=== PATIENT | female | born 1985 | race Two or more races ===

== ENCOUNTER 2020-05-06 09:50 | Inpatient (IN) | payer OTHER ==
[~2020-05-06] VITALS: Ht 170.2 cm; Wt 90.7 kg
[2020-05-06] MEDS ORDERED: LACTATED RINGER'S 1,000 ML IV SCH (10:44)
[2020-05-06] MEDS ORDERED: LACT. RINGERS/OXYTOCIN 20UNITS 1,000 ML IV SCH (10:44)
[2020-05-06 11:29] LABS: Basophils # (auto) 0.1 10 ^3/uL (0-0.2); Basophils % (auto) 0.6 % (0.0-2.0); Eosinophils # (auto) 0.1 10 ^3/uL (0-0.8); Eosinophils % (auto) 0.9 % (0.0-7.0); Hematocrit 40.8 % (36.0-46.0); Lymphocytes # (auto) 1.5 10 ^3/uL (0.4-5.4); Lymphocytes % (auto) 10.7 % (10.0-50.0); Mean Corpuscular Hemoglobin 29.2 pg (28.0-32.0); Mean Corpuscular Volume 91.3 fL (80.0-100.0); Monocytes # (auto) 0.7 10 ^3/uL (0-1.3); Monocytes % (auto) 4.6 % (0.0-12.0); Neutrophils % (auto) 83.2 % (37.0-80.0); Platelet Count (auto) 200 10^3/uL (140-450); Red Blood Cells 4.47 10^6/uL (4.0-5.20); Red Cell Distribution Width 14.7 % (11.8-14.3); White Blood Cell 14.4 10^3/uL (4.4-10.8)
[2020-05-06] MEDS: IBUPROFEN 600 MG TAB PO PRN ×3 (11:33→20:14)
[2020-05-06 11:44] LABS: INR 0.92 (0.9-1.15); Partial Thromboplastin Time 22.5 sec (23.0-31.2)
[2020-05-06 12:03] LABS: Albumin 2.7 g/dL (3.4-5.0); Calcium 8.4 mg/dL (8.5-10.1)
[2020-05-06 12:07] LABS: BUN/Creatinine Ratio 18.8; Bilirubin, Total 0.4 mg/dL (0.2-1.0); Total Protein 6.7 g/dL (6.4-8.2); Uric Acid 3.5 mg/dL (2.6-6.0)
[2020-05-06] MEDS ORDERED: WITCH HAZEL-GLYCERIN PAD TOP PRN (12:15)
[2020-05-06] MEDS ORDERED: PHISODERM TOP SOLN 240ML BTL TOP PRN (12:15)
[2020-05-06] MEDS ORDERED: DERMOPLAST 60ML BOTTLE TOP PRN (12:15)
--- NOTE | 2020-05-06 12:30 | NUR ---
Ambulation: Patient OOB with standby assistance by RN. Patient ambulated to bathroom with steady gait. [facility] teaching provided with returned demonstration by patient. Clean gown provided and bed linen changed. Patient ambulated back to bed with steady gait and no distress noted.
[2020-05-06 15:10] VITALS: BP 111/63
--- NOTE | 2020-05-06 17:21 | NUR ---
Dr. Barrett notified PT did not receive COVID19 test and has no signs and symptoms of COVID19. Dr. Barrett verbalizes it's okay to hold COVID19 testing.
[2020-05-06] MEDS ORDERED: miSOPROStol 100 mcg TAB PO ONE (17:45)
[2020-05-06 19:07] VITALS: BP 128/58
[2020-05-06] MEDS ORDERED: PREN-129 PO (20:07)
[2020-05-06] MEDS ORDERED: ACETAMINOPHEN 325 MG TAB PO PRN (20:15)
[2020-05-06 22:46] VITALS: BP 118/79
[2020-05-07 03:00] VITALS: BP 121/72
[2020-05-07 04:06] LABS: Rubella Antibodies, IgG <0.90 index (Immune >0.99)
[2020-05-07] MEDS: IBUPROFEN 600 MG TAB PO PRN ×3 (04:43→11:08)
[2020-05-07 05:11] LABS: RPR Non Reactive (Non Reactive)
[2020-05-07 07:20] VITALS: BP 116/65
[2020-05-07] MEDS ORDERED: MEASLES, MUMPS & RUBELLA VAC(MMRII) 0.5ML SC ONE (09:30)
[2020-05-07 11:00] VITALS: BP 131/70
--- NOTE | 2020-05-07 11:30 | NUR ---
Discharge: Discharge instructions given as ordered. Pt encouraged to follow up with THERAPY AIDE as instructed. All questions and concerns addressed. Patient verbalized understanding. Medication reconciliation completed and copy given to patient. All required/requested vaccines given and copies of vaccinations given to patient. Patient encouraged to prepare to depart unit.
--- NOTE | 2020-05-07 11:38 | NUR ---
Discharge: Patient taken to vehicle via wheelchair with all personal belongings, accompanied by staff and family member. No distress noted at the time of departure, no adverse changes in status since initial assessment.
== END 2020-05-07 11:38 | disposition home or self-care (01) | DRG 807 ==
LOC: OBSVTOIN 09:50 → LDRP 09:50
PROVIDERS: ADMIT Specialist; ATTEND Specialist
PROC: 10E0XZZ Delivery of Products of Conception, External Approach (ICD-10-PCS; principal; 2020-05-06)
DX: O62.3 Precipitate labor (principal); Z37.0 Single live birth; Z3A.40 40 weeks gestation of pregnancy
CPT/HCPCS: 36415; 59025; 59409; 80053; 81002; 84112; 84550; 85025; 85610; 85730; 86592; 86703; 86762; 86850; 86900; 86901; 87340; 96360; 96372; G0378

== ENCOUNTER 2025-02-06 11:46 | Emergency (ER) | payer OTHER ==
[~2025-02-06] VITALS: Ht 170.2 cm; Wt 64.0 kg
[~2025-02-06 11:46] MED LIST: PREN-129 PO
[2025-02-06] MEDS: SODIUM CHLORIDE 0.9% 500 ML IV ONE (12:15)
[2025-02-06] MEDS: methylPREDNISolone SOD SUCC 40 MG/ML VL IV ONE (12:54)
[2025-02-06] MEDS: methylPREDNISolone SOD SUCC 125 MG/2 ML VL IV ONE (12:54)
[2025-02-06 13:15] VITALS: BP 128/79; PULSE 73; RESP 16; TEMP 97.9; O2SAT 98
--- NOTE | 2025-02-06 13:39 | ED.PDOC ---
History of Present Illness HPI Comments This is a 39-year-old female who comes in with chief complaint of possible allergic reaction. The patient states that she took it injection for weight loss and states that approximately 90 minutes following this she developed urticaria as well as generalized body pain as well as tingling and some shortness a breath. 911 was called and when they arrived at the patient's location, the patient was pale with a room air oxygen saturation of 85%. The patient is also having some wheezing. She was given a hand-held nebulizer of albuterol with good relief. The patient was also given epinephrine 0.3 subcu as well as Benadryl 25 mg IV push. The patient was hypotensive so then was given 700 cc of normal saline and the blood pressure went up to 96 systolic. After the treatments, the patient's oxygen saturation went to 97%. Upon arrival, the patient is slightly lethargic but able to answer questions appropriately. Chief Complaint: Allergic Reaction Time Seen by MD: 11:55 Primary Care Provider: TRISTIN Reviewed Notes: Nurses Notes, Ceiling Cleaner Notes, Medications, Allergies (No allergies to medications) Allergies: Coded Allergies: No Known Drug Allergy (Verified Allergy, Unknown, 05/06/20) Home Meds Reported Medications Vit W/ Ferrous Fumara () Tab, 1 PO, TAB 05/06/20 Information Source: Patient, Emergency Med Personnel Mode of Arrival: EMS Severity: Moderate Timing: Minutes Duration: Since onset Prehospital treatment: Information And Referral Director, IVF, Other (Normal saline bolus, Benadryl 25 mg IV push, epinephrine) Associated signs and symptoms Associated shortness for breath with the urticaria and wheezing Past Medical History PAST MEDICAL HISTORY: Asthma Surgical 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: 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: No 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 TEACHER History Family History Family History: No family hx of Cancer, No family hx of DM, No family hx of Heart luis alberto Social History Smoker: Non-Smoker Alcohol: Occasionally Drugs: Denies Drug Use Lives In: Home Constitutional: reports: weakness; denies: chills, diaphoresis, fatigue, fever, malaise, sweats, others EENTM: denies: blurred vision, double vision, ear bleeding, ear discharge, ear drainage, ear pain, ear ringing, eye pain, eye redness, hearing loss, mouth pain, mouth swelling, nasal discharge, nose bleeding, nose congestion, nose pain, photophobia, tearing, throat pain, throat swelling, voice changes, others Respiratory: reports: cough, shortness of breath, wheezing; denies: hemoptysis, orthopnea, SOB at rest, SOB with excertion, stridor, others Cardiovascular: denies: chest pain, dizzy spells, diaphoresis, Dyspnea on exertion, edema, irregular heart beat, left arm pain, lightheadedness, palpitations, PND, syncope, others Gastrointestinal: denies: abdomen distended, abdominal pain, blood streaked bowels, constipated, diarrhea, dysphagia, difficulty swallowing, hematemesis, melena, nausea, poor appetite, poor fluid intake, rectal bleeding, rectal pain, vomiting, others Genitourinary: denies: abnormal vagina bleeding, burning, dyspareunia, dysuria, flank pain, frequency, hematuria, incontinence, pain, , vagina discharge, urgency, others Neurological: denies: dizziness, fainting, headache, left sided numbness, left sided weakness, numbness, paresthesia, pre-existing deficit, right sided numbness, right sided weakness, seizure, speech problems, tingling, tremors, weakness, others Musculoskeletal: denies: back pain, gout, joint pain, joint swelling, muscle pain, muscle stiffness, neck pain, others Integumetry: reports: others (Body tingling); denies: bruises, change in color, change in hair/nails, dryness, laceration, lesions, lumps, rash, wounds Allergic/Immunocompromised: reports: Hives; denies: Difficulty Healing, Frequent Infections, Itching, others Hematologic/Lymphatic: denies: anemia, blood clots, easy bleeding, easy bruising, swollen glands, others Endocrine: denies: excessive hunger, excessive sweating, excessive thirst, excessive urination, flushing, intolerance to cold, intolerance to heat, unexplained weight gain, unexplained weight loss, others Psychiatric: denies: anxiety, bipolar disorder, depression, hopeless, panic disorder, schizophrenia, sleepless, suicidal, others Physical Exam General Appearance: Moderate Distress HEENT: Pale Conjuntivae (L), Pale Conjuntivae (R), Pharynx Normal, TMs Normal Neck: Full Range of Motion, Non-Tender, Normal, Normal Inspection Respiratory: Chest Non-Tender, Lungs Clear, No Accessory Muscle Use, No Respiratory Distress, Normal Breath Sounds Cardiovascular: No Edema, No JVD, No Murmur, No Gallop, Normal Peripheral Pulses, Regular Rate/Rhythm Breast Exam: Deferred Gastrointestinal: No Organomegaly, Non Tender, No Pulsatile Mass, Normal Bowel Sounds, Soft Genitalia: Deferred Pelvic: Deferred Rectal: Deferred Extremities: No calf tenderness, Normal capillary refill, Normal inspection, Normal range of motion, Non-tender, No pedal edema Musculoskeletal : Apperance: Normal Neurologic: Alert, research project coordinator II-XII nml as Tested, Motor Weakness, Normal Affect, Normal Mood, No Sensory Deficits Cerebellar Function: Normal Reflexes: Normal Skin: Dry, Rash (Upper and lower extremity), Warm Lymphatic: No Adenopathy Was a procedure done? Was a procedure done?: No Differential Dx Considerations may include: Acute allergic reaction, PE, generalized weakness, electrolyte imbalance X-Ray, Labs, Meds, VS Vital Signs Date Time Temp Pulse Resp B/P (MAP) Pulse Ox O2 Delivery O2 Flow Rate FiO2 02/06/25 12:03 98.9 94 20 95/65 (75) 97 98.9 Lab Test 02/06/25 14:08 Range/Units White Blood Count 16.1 H 4.4-10.8 10^3/uL Red Blood Count 4.61 4.0-5.20 10^6/uL Hemoglobin 13.1 12.2-16.2 g/dL Hematocrit 40.4 36.0-46.0 % Mean Corpuscular Volume 87.7 80.0-100.0 fL Mean Corpuscular Hemoglobin 28.4 28.0-32.0 pg Mean Corpuscular Hemoglobin Concent 32.4 32.0-36.0 g/dL Red Cell Distribution Width 15.6 H 11.8-14.3 % Platelet Count 237 140-450 10^3/uL Mean Platelet Volume 8.1 6.9-10.8 fL Neutrophils (%) (Auto) 84.1 H 37.0-80.0 % Lymphocytes (%) (Auto) 10.5 10.0-50.0 % Monocytes (%) (Auto) 5.2 0.0-12.0 % Eosinophils (%) (Auto) 0.2 0.0-7.0 % Basophils (%) (Auto) 0.0 0.0-2.0 % Neutrophils # (Auto) 13.6 H 1.6-8.6 10 ^3/uL Lymphocytes # (Auto) 1.7 0.4-5.4 10 ^3/uL Monocytes # (Auto) 0.8 0-1.3 10 ^3/uL Eosinophils # (Auto) 0 0-0.8 10 ^3/uL Basophils # (Auto) 0 0-0.2 10 ^3/uL Nucleated Red Blood Cells 0.0 % D-Dimer, Quantitative 3.51 H 0.0-0.49 mg/L FEU Sodium Level 142 136-145 mmol/L Potassium Level 5.0 3.5-5.1 mmol/L Chloride Level 108 H 98-107 mmol/L Carbon Dioxide Level 26 20-31 mmol/L Anion Gap 8 5-15 Blood Urea Nitrogen 24 H 9-23 mg/dL Creatinine 0.69 0.550-1.02 mg/dL Glomerular Filtration Rate Calc 115 >90 mL/min BUN/Creatinine Ratio 34.8 H 10.0-20.0 Serum Glucose 113 H 74-106 mg/dL Calcium Level 9.2 8.7-10.4 mg/dL Current Medications Medications (Trade) Dose Ordered Sig/Jonathon Route Start Time Stop Time Status Last Admin Sodium Chloride 500 ml @ 500 mls/hr Q1H ONCE IV 02/06/25 12:15 02/06/25 13:14 DC 02/06/25 12:15 Methylprednisolone Sodium Succinate (Solu Medrol) 40 mg ONCE ONCE IV 02/06/25 12:15 02/06/25 12:16 DC 02/06/25 12:54 Methylprednisolone Sodium Succinate (Solu Medrol) 80 mg ONCE ONCE IV 02/06/25 12:15 02/06/25 12:16 DC 02/06/25 12:54 IV Hep-Lock was established. The patient was given normal saline at 500 cc bolus. The patient was given Solu-Medrol a total of 120 mg IV push The patient is stating that she is feeling better. We did a D-dimer because the patient became somewhat hypoxic and then seemed to improve. The D-dimer was 3.51 The patient's CBC shows an elevated white blood cell count of 16.1 The rest of the chemistry panel is within normal limits Because of the elevated D-dimer in the hypoxic episode, we did a CAT scan of the chest to rule out PE which was also negative. The patient will follow up with the primary care doctor The patient will return to the emergency department's condition worsens Images Reviewed?: Images reviewed and evaluated by me Time of 1ST Reevaluation: 13:47 Reevaluation 1ST: Unchanged Patient Education/Counseling: Diagnosis, Treatment, Prognosis, Need For Follow Up Family Education/Counseling: Diagnosis, Treatment, Prognosis, Need For Follow Up Departure 1 Departure Time of Disposition: 15:54 Impression: Primary Impression: Acute allergic reaction Qualified Codes: T78.40XA - Allergy, unspecified, initial encounter Disposition: 01 HOME / SELF CARE / HOMELESS Condition: Fair Discharged With: Self Critical Care Note Critical Care Time?: No Stability Stability form required: No Heart Score Heart Score: Heart Score Response (Comments) Value History N/A 0 EKG N/A 0 Age N/A 0 Risk Factors N/A 0 Troponin N/A 0 Total 0 SANTINO DE SANTIAGO MD February 06, 2025 13:39
[2025-02-06 14:29] LABS: Basophils # (auto) 0 10 ^3/uL (0-0.2); Eosinophils # (auto) 0 10 ^3/uL (0-0.8); Eosinophils % (auto) 0.2 % (0.0-7.0); Hematocrit 40.4 % (36.0-46.0); Hemoglobin 13.1 g/dL (12.2-16.2); Lymphocytes # (auto) 1.7 10 ^3/uL (0.4-5.4); Lymphocytes % (auto) 10.5 % (10.0-50.0); Mean Corpuscular Hemoglobin 28.4 pg (28.0-32.0); Mean Corpuscular Hgb Conc. 32.4 g/dL (32.0-36.0); Mean Corpuscular Volume 87.7 fL (80.0-100.0); Monocytes # (auto) 0.8 10 ^3/uL (0-1.3); Monocytes % (auto) 5.2 % (0.0-12.0); Neutrophils # (auto) 13.6 10 ^3/uL (1.6-8.6); Neutrophils % (auto) 84.1 % (37.0-80.0); Platelet Count (auto) 237 10^3/uL (140-450); Red Blood Cells 4.61 10^6/uL (4.0-5.20); Red Cell Distribution Width 15.6 % (11.8-14.3); White Blood Cell 16.1 10^3/uL (4.4-10.8)
[2025-02-06 14:30] LABS: Sodium 142 mmol/L (136-145)
[2025-02-06 14:32] LABS: Anion Gap 8 (5-15); Calcium 9.2 mg/dL (8.7-10.4); Carbon Dioxide 26 mmol/L (20-31); Chloride 108 mmol/L (98-107)
[2025-02-06 14:37] LABS: BUN/Creatinine Ratio 34.8 (10.0-20.0); Blood Urea Nitrogen 24 mg/dL (9-23); Glucose 113 mg/dL (74-106)
[2025-02-06] MEDS: IOHEXOL 350 MG/ML 100ML IJ ONE (15:16)
--- NOTE | 2025-02-06 15:46 | DVH ---
CTA Chest with intravenous contrast INDICATION: sob COMPARISON: None TECHNIQUE: Multidetector spiral CTA of the chest was performed of the chest with intravenous contrast . PULMONARY ANGIOGRAPHY PROTOCOL was utilized using a bolus-tracking technique centered on the main p ulmonary artery. Axial, coronal and sagittal multiplanar and MIP reformats were performed. CONTRAST: Type of contrast: Omni 350 Contrast injected: 100 ml Radiation dose : Chest: CTDI volume is 6.21 mGy. Dose-length product is 235.18 mGy*cm The dose indicators for CT are the volume computed Tomography (CT) dose Index (CTDIvol) and the dose Length product (DLP), and are measured in units of mGy and mGy-cm, respectively. These indicators are not patient dose, but values generated from the CT scanner acquisition factors. The report includes radiation exposure data for exposures received during this examination. Findings: Limited by motion. Pulmonary artery: No pulmonary embolism Lower neck: Normal thyroid. Lungs: No focal consolidation, pleural effusion or pneumothorax. Heart/Vascular Structures: Normal heart size. No pericardial effusion. Lymph Nodes: No adenopathy Pleura: No pleural effusion or significant pneumothorax. Musculoskeletal: No acute osseous abnormality. Soft tissues: Normal. Upper abdomen: Limited portions of the upper abdomen are unremarkable. IMPRESSION: 1. No pulmonary embolism. 2. No acute thoracic finding. HS:Y
[2025-02-06] MEDS ORDERED: METH4PAK PO (15:55)
== END 2025-02-06 17:33 | disposition home or self-care (01) ==
LOC: EDUNIT# 11:46 → EDBD 11:46 → ER 11:50
DX: T78.40XA Allergy, unspecified, initial encounter (principal); L50.9 Urticaria, unspecified; J45.909 Unspecified asthma, uncomplicated; Z98.51 Tubal ligation status; Z79.899 Other long term (current) drug therapy; X58.XXXA Exposure to other specified factors, initial encounter
CPT/HCPCS: 36415; 71275; 80048; 85025; 85379; 96361; 96374; 99285; J2919; J7040; Q9967